=== PATIENT | female | born 1955 ===

== ENCOUNTER 2019-01-08 06:40 | Day surgery (SDC) | payer OTHER ==
[~2019-01-08 06:40] MED LIST: COZAAR25 MG PO
[2019-01-08] MEDS ORDERED: PERCOCET 5-3251 EACH PO (13:31)
== END 2019-01-08 17:20 | disposition home or self-care (01) ==
LOC: CIR.AMB 06:40
DX: E04.2 Nontoxic multinodular goiter (principal)